=== PATIENT | female | born 1970 | race Caucasian/White ===

== ENCOUNTER 2018-05-16 21:32 | Inpatient (IN) ==
[2018-05-16] MEDS ORDERED: SODIUM CHLORIDE 0.9% 1,000 ML IV STA (21:56)
[2018-05-16 22:11] LABS: Basophils % 0.7 % (0.0-0.8); Eosinophils # 0.1 10*3/uL (0.0-0.87); Eosinophils % 1.5 % (0.00-10.9); Hematocrit 38.4 VOL% (35.7-47.0); Hemoglobin 12.6 GM/DL (12.0-16.0); Immature Granulocytes % 0.4 %; Immature Granulocytes Absolute 0.02 #; Lymphocytes # 1.4 10*3/uL (1.4-4.0); Lymphocytes % 26.7 % (21.3-54.2); Mean Corpuscular HGB Conc 32.8 GM/DL (32-36); Mean Corpuscular Hemoglobin 33 PG (27-34); Mean Platelet Volume 10.4 FL (9.6-12.0); Monocytes # 0.5 10*3/uL (0.11-0.8); Monocytes % 9.5 % (1.7-12.7); Neutrophils # 3.3 10*3/uL (1.4-7.4); Neutrophils % 61.2 % (38.7-73.9); Platelet Count 259 T/CUMM (130-400); Red Blood Count 3.88 MC/CUMM (3.8-5.5); Red Cell Distribution Width 12.2 % (9.3-17.3); White Blood Count 5.4 T/CUMM (4-12)
[2018-05-16 22:24] LABS: Alanine Aminotransferase 13 U/L (13-56); Albumin 3.5 G/DL (3.4-5.0); Alkaline Phosphatase 42 U/L (45-117); Aspartate Amino Transferase 11 U/L (0-37); Bilirubin,Total < 0.39 MG/DL (0.2-1.0); Blood Urea Nitrogen 19 MG/DL (7-18); Calcium 8.4 MG/DL (8.5-10.1); Glucose 96 MG/DL (74-106); Osmolality,Calculated 287.8 MOS/KG (273-304); Potassium 3.7 MMOL/L (3.5-5.1); Sodium 144 MMOL/L (136-145); Total Protein 6.4 G/DL (6.4-8.3)
[2018-05-16 22:27] LABS: Acetaminophen < 2.0 UG/ML (10-30); Salicylate < 2.8 MG/DL (2.8-20)
[2018-05-16 22:48] LABS: Amorphous Crystals,Urine Occasional /HPF (Few); Apearance,Urine Slightly Hazy (Clear); Bilirubin,Urine Negative (Negative); Blood, Urine Negative (Negative); Glucose,Urine (UA) Negative (Negative); Hyaline Casts,Urine 3 /LPF (0-3); Ketones,Urine Negative (Negative); Mucus,Urine Occasional /LPF (Occasional); Nitrite,Urine Negative (Negative); Protein,Urine Negative; Squamous Epithelial Cell,Urine Occasional /HPF (0-10); Urine Color Yellow (Yellow); Urine Specific Gravity 1.025 (1.001-1.035); WBC,Urine <1 /HPF (0-6)
[2018-05-16 22:58] LABS: Barbiturates Screen,Urine Negative (Negative); Benzodiazepines Screen,Urine Positive (Negative); Cannabinoid Screen,Urine Negative (Negative); Opiate Screen,Urine Negative (Negative); Phencyclidine Screen,Urine Negative (Negative)
[2018-05-17] MEDS ORDERED: ALBUTEROL 2.5 MG/3 ML NEB RESP TX PRN (00:28)
[2018-05-17] MEDS: ENOXAPARIN 40 MG/0.4 ML SYRINGE SUBCUT SCH (01:32)
[2018-05-17] MEDS: SODIUM CHLORIDE 0.9% 1,000 ML IV SCH ×3 (01:32→22:41)
[2018-05-17 07:43] LABS: Basophils % 0.7 % (0.0-0.8); Eosinophils # 0.1 10*3/uL (0.0-0.87); Eosinophils % 2.1 % (0.00-10.9); Hematocrit 38.9 VOL% (35.7-47.0); Hemoglobin 12.7 GM/DL (12.0-16.0); Immature Granulocytes % 0.2 %; Immature Granulocytes Absolute 0.01 #; Lymphocytes # 1.6 10*3/uL (1.4-4.0); Lymphocytes % 36.4 % (21.3-54.2); Mean Corpuscular HGB Conc 32.6 GM/DL (32-36); Mean Corpuscular Hemoglobin 32 PG (27-34); Mean Corpuscular Volume 98.5 FL (87-102); Mean Platelet Volume 10.3 FL (9.6-12.0); Monocytes # 0.5 10*3/uL (0.11-0.8); Monocytes % 10.9 % (1.7-12.7); Neutrophils # 2.2 10*3/uL (1.4-7.4); Neutrophils % 49.7 % (38.7-73.9); Platelet Count 217 T/CUMM (130-400); Red Blood Count 3.95 MC/CUMM (3.8-5.5); Red Cell Distribution Width 12.1 % (9.3-17.3); White Blood Count 4.4 T/CUMM (4-12)
[2018-05-17 08:01] LABS: Alanine Aminotransferase 15 U/L (13-56); Albumin 3.2 G/DL (3.4-5.0); Alkaline Phosphatase 37 U/L (45-117); Aspartate Amino Transferase 11 U/L (0-37); Bilirubin,Total < 0.39 MG/DL (0.2-1.0); Blood Urea Nitrogen 12 MG/DL (7-18); Calcium 7.8 MG/DL (8.5-10.1); Glucose 86 MG/DL (74-106); Osmolality,Calculated 279.3 MOS/KG (273-304); Potassium 3.8 MMOL/L (3.5-5.1); Sodium 141 MMOL/L (136-145)
[2018-05-17] MEDS: ONDANSETRON 4 MG/2 ML VIAL IV PRN ×3 (09:29→19:17)
[2018-05-17] MEDS: PANTOPRAZOLE 40 MG TABLET PO SCH (09:30)
[2018-05-17] MEDS: ACETAMINOPHEN 325 MG TABLET PO PRN ×2 (13:59→19:41)
[2018-05-18] MEDS ORDERED: traZODone 50 MG TABLET PO ONE (00:44)
[2018-05-18] MEDS: ENOXAPARIN 40 MG/0.4 ML SYRINGE SUBCUT SCH (01:02)
[2018-05-18] MEDS: ONDANSETRON 4 MG/2 ML VIAL IV PRN (02:07)
[2018-05-18] MEDS: ACETAMINOPHEN 325 MG TABLET PO PRN (05:28)
[2018-05-18] MEDS: SODIUM CHLORIDE 0.9% 1,000 ML IV SCH ×2 (06:58→09:18)
[2018-05-18] MEDS ORDERED: lamoTRIgine 100 MG TABLET PO SCH ×2 (09:00→10:57)
[2018-05-18] MEDS: PANTOPRAZOLE 40 MG TABLET PO SCH (10:02)
[2018-05-18] MEDS ORDERED: TRINTELLIX 20 MG PO SCH (11:00)
[2018-05-18] MEDS: ALPRAZolam 0.5 MG TABLET PO PRN ×2 (11:17→21:30)
[2018-05-18] MEDS: Vortioxetine Hydrobromide [Trintellix] 20 MG PO SCH (11:18)
[2018-05-18] MEDS: ONDANSETRON 4 MG TABLET PO PRN (14:21)
[2018-05-18] MEDS: traZODone 50 MG TABLET PO SCH (21:30)
[2018-05-19] MEDS: ENOXAPARIN 40 MG/0.4 ML SYRINGE SUBCUT SCH (00:13)
[2018-05-19] MEDS: ACETAMINOPHEN 325 MG TABLET PO PRN ×3 (02:39→21:31)
[2018-05-19] MEDS: lamoTRIgine 100 MG TABLET PO SCH (09:35)
[2018-05-19] MEDS: PANTOPRAZOLE 40 MG TABLET PO SCH (09:36)
[2018-05-19] MEDS: Vortioxetine Hydrobromide [Trintellix] 20 MG PO SCH (09:38)
[2018-05-19] MEDS: ALPRAZolam 0.5 MG TABLET PO PRN ×3 (09:45→21:32)
[2018-05-19] MEDS: ONDANSETRON 4 MG TABLET PO PRN (12:58)
[2018-05-19] MEDS ORDERED: DIPHENOXYLATE/ATROPINE 2.5-0.025 MG TABLET PO ONE ×2 (17:30→22:30)
[2018-05-19] MEDS: traZODone 50 MG TABLET PO SCH (21:32)
[2018-05-20] MEDS ORDERED: PHENOL 1.4% THROAT SPRAY 177 ML BOTTLE PO PRN (00:07)
[2018-05-20] MEDS: ALPRAZolam 0.5 MG TABLET PO PRN ×2 (05:45→14:11)
[2018-05-20] MEDS: ACETAMINOPHEN 325 MG TABLET PO PRN ×2 (05:46→14:09)
[2018-05-20 05:56] VITALS: BP 92/62
[2018-05-20] MEDS: lamoTRIgine 100 MG TABLET PO SCH ×2 (09:51→16:24)
[2018-05-20] MEDS: ENOXAPARIN 40 MG/0.4 ML SYRINGE SUBCUT SCH (09:52)
[2018-05-20] MEDS: Vortioxetine Hydrobromide [Trintellix] 20 MG PO SCH (09:52)
[2018-05-20] MEDS ORDERED: LISDEXAMFETAMINE DIMESYLATE 40 MG PO SCH (12:15)
[2018-05-20] MEDS: PANTOPRAZOLE 40 MG TABLET PO SCH (14:13)
== END 2018-05-20 18:45 | DRG 918 ==
LOC: N.ED 21:32 → N.EDINP 05-17 00:28 → SUATTDRO 05-17 00:28 → N.CC 05-17 01:08
PROVIDERS: ADMIT Family Medicine; ATTEND Internal Medicine